=== PATIENT | male | born 1950 | race Caucasian/White ===

== ENCOUNTER 2018-04-10 16:38 | Emergency (ER) | payer OTHER ==
[~2018-04-10] VITALS: Ht 177.8 cm; Wt 90.9 kg
[2018-04-10] MEDS ORDERED: acetaminophen 325mg tablet PO ONE (16:55)
[2018-04-10 18:16] VITALS: BP 124/71
== END 2018-04-10 20:56 | disposition left against medical advice (07) ==
LOC: ER 16:39
DX: S20.212A Contusion of left front wall of thorax, initial encounter (principal); R91.8 Other nonspecific abnormal finding of lung field; Z88.6 Allergy status to analgesic agent; W01.198A Fall on same level from slipping, tripping and stumbling with subsequent striking against other object, initial encounter; Y93.89 Activity, other specified; Y92.89 Other specified places as the place of occurrence of the external cause; Y99.8 Other external cause status
CPT/HCPCS: 71250; 99284

== ENCOUNTER 2018-04-11 11:13 | Emergency (ER) | payer OTHER ==
[~2018-04-11] VITALS: Ht 177.8 cm; Wt 90.9 kg
[2018-04-11 11:51] VITALS: BP 109/84
== END 2018-04-11 12:37 | disposition home or self-care (01) ==
LOC: ER 11:13
DX: R07.81 Pleurodynia (principal); Z60.2 Problems related to living alone; Z88.5 Allergy status to narcotic agent
CPT/HCPCS: 99284

== ENCOUNTER 2021-08-04 20:06 | Emergency (ER) | payer OTHER, MEDICARE ==
[~2021-08-04] VITALS: Ht 177.8 cm; Wt 86.4 kg
[2021-08-04 20:26] VITALS: BP 134/102
[2021-08-04] MEDS ORDERED: PRED20TA PO (20:50)
[2021-08-04] MEDS ORDERED: amox tr/potassium clavulanate 875/125mg TAB PO ONE (20:50)
[2021-08-04] MEDS ORDERED: AMOX-422 PO (20:50)
[2021-08-04] MEDS ORDERED: FLUT16SP2 BOTHNARES (20:50)
[2021-08-04] MEDS ORDERED: predniSONE 20 mg tablet PO ONE (20:50)
== END 2021-08-04 21:04 | disposition home or self-care (01) ==
LOC: ER 20:06
DX: J20.9 Acute bronchitis, unspecified (principal); Z20.822 Contact with and (suspected) exposure to COVID-19; R09.81 Nasal congestion; R05.9 Cough, unspecified; R06.02 Shortness of breath; Z60.2 Problems related to living alone; Z88.8 Allergy status to other drugs, medicaments and biological substances; Z79.2 Long term (current) use of antibiotics; Z79.899 Other long term (current) drug therapy
CPT/HCPCS: 71045; 87635; 99284; C9803; J7512

== ENCOUNTER 2021-08-18 17:27 | Emergency (ER) | payer OTHER, MEDICARE ==
[~2021-08-18] VITALS: Ht 188 cm; Wt 81.8 kg
[~2021-08-18 17:27] MED LIST: FLUT16SP2 BOTHNARES
[2021-08-18 17:40] VITALS: BP 117/98
[2021-08-18] MEDS ORDERED: ALBU6.7H9 INH ×2 (18:32→20:43)
== END 2021-08-18 20:12 | disposition home or self-care (01) ==
LOC: ER 17:28
DX: J45.909 Unspecified asthma, uncomplicated (principal); R07.89 Other chest pain; R05.9 Cough, unspecified; Z60.2 Problems related to living alone; Z88.8 Allergy status to other drugs, medicaments and biological substances; Z79.899 Other long term (current) drug therapy
CPT/HCPCS: 71045; 93005; 99283